=== PATIENT | male | born 1995 | race Caucasian/White ===

== ENCOUNTER 2020-07-16 17:15 | Emergency (ER) | payer SELFPAY ==
[~2020-07-16] VITALS: Ht 172.7 cm; Wt 68.0 kg
[2020-07-17 01:38] VITALS: BP 125/79
== END 2020-07-17 01:47 | disposition home or self-care (01) ==
LOC: ER 17:15
DX: T51.0X1A Toxic effect of ethanol, accidental (unintentional), initial encounter (principal); R41.82 Altered mental status, unspecified; F10.129 Alcohol abuse with intoxication, unspecified; Y90.9 Presence of alcohol in blood, level not specified; Y92.488 Other paved roadways as the place of occurrence of the external cause; F17.210 Nicotine dependence, cigarettes, uncomplicated; F12.90 Cannabis use, unspecified, uncomplicated; Z71.6 Tobacco abuse counseling
CPT/HCPCS: 93005; 99285; 99406